=== PATIENT | male | born 1955 | race Two or more races ===

== ENCOUNTER 2021-01-24 14:44 | Outpatient (AMBR) | payer MEDICAID, SELFPAY ==
--- NOTE | 2020-12-28 09:26 | PTNOTE_ITS ---
PT OP Initial Eval Patient Information Visit Reasons: R29.898 Medical Diagnosis: R29.898 Treatment Dx #1: Decreased balance Start of Care: 12/28/20 Date of Onset: 09/10/20 Initial Assessment Subjective Pt is 65 yr old yi speaking male here with his s/p CVA in August. Pt is ambulating with FWW and says his L eye doesn't focus as well and his balance isn't as good as before. Pt's helps him with bathing and donning socks and pt is independent with other ADL's. He can reach up the L UE and feels like the strength is coming back in the L LE. He denies L foot drop. 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 Pt requires hand support with gait and doesn't see well out of L eye which affects depth perception. Pt scored high fall risk on the Tinetti test and chair to stand test and requires skilled therapy in order to improve balance with gait and has fair rehab potential. 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 Independent with HEP 2. Improved L LE strength quads and HS to at least 4/5 3. No sway with tandem stance on firm surfaces for 20 seconds 4. Improved chair to stand test to at least 10 5. Improved Tinetti score to at least 23/28 Treatment Plan 1. Manual therapy 2. Therex 3. Modalities as indicated, moist heat, ice, estim Frequency and Duration 2x a week for 6 weeks Certification Dates: 12/28/20 to 03/30/21 Office Procedures PT Procedures PT Date of Service: 12/28/20 OP PT Eval Mod Complex 30 minutes: Yes
--- NOTE | 2020-12-30 15:10 | PT.ODAYNRPT ---
PT Outpatient Daily Note Date of Service: 12/30/20 OP Daily Note Visit Reasons: R29.898 Outpatient Physical Therapy Treatment Date: 12/30/20 Subjective: Same as time of evaluation Objective: See F/S for therex Assessment: Pt has poor L eye vision which makes it difficult to grab walker on that side. He fatigued after lunging and partial body weight squatting therex today. Plan: Request additional authorized visits x11 Length of Time (minutes) of Treatment: 30 Minutes Office Procedures PT Procedures PT Date of Service: 12/28/20 OP PT Eval Mod Complex 30 minutes: Yes PT Procedures PT Date of Service: 12/30/20 Therapeutic Exercise 30 minutes: Yes
--- NOTE | 2021-01-24 19:33 | PT.ODAYNRPT ---
PT Outpatient Daily Note Date of Service: 01/24/21 OP Daily Note Visit Reasons: R29.898 Outpatient Physical Therapy Treatment Date: 01/24/21 Subjective: Pt feels his legs are stronger after last visit Objective: See F/S for therex Assessment: Pt has poor L eye vision which makes it difficult to grab walker on that side. He fatigued after lunging and partial body weight squatting therex today. Plan: Continue per POC Length of Time (minutes) of Treatment: 30 Minutes Office Procedures PT Procedures PT Date of Service: 12/28/20 OP PT Eval Mod Complex 30 minutes: Yes PT Procedures PT Date of Service: 12/30/20 Therapeutic Exercise 30 minutes: Yes PT Procedures PT Date of Service: 01/24/21 Therapeutic Exercise 30 minutes: Yes
== END 2021-01-25 23:59 | disposition home or self-care (01) ==
PROVIDERS: PCP Physician Assistant; Referring Provider Physician Assistant; Visit Provider Physician Assistant
DX: I69.354 Hemiplegia and hemiparesis following cerebral infarction affecting left non-dominant side (principal); R26.89 Other abnormalities of gait and mobility; I10 Essential (primary) hypertension; E11.9 Type 2 diabetes mellitus without complications
CPT/HCPCS: 97110; 97162

== ENCOUNTER → 2024-07-17 | Outpatient (CLI) | payer MEDICARE, MEDICAID, SELFPAY ==
--- NOTE | 2024-07-17 12:00 | XR_ITS ---
Examination: MRI brain without intravenous contrast. Date and time of exam: July 17, 2024 1307 hours INDICATIONS: Numbness and weakness in the legs this month, history CVA 2021 Technique: Multiple axial and sagittal images of the brain obtained. Siemens high-resolution 1.5 Yisel short bore scanners utilized. Sagittal sections, T1-weighted, TR 500, TE 14, are performed. Axial sections proton-density and T2-weighted have been obtained. Inversion recovery axial images, TR 9, 260, TE 111, TI 2500. Diffusion weighted images, axial sections, TR 4800, TE 128, B value 1000 Axial sections, ADC map, TR 4800, TE 128 Findings: Enlargement of the sella turcica is not present. The optic chiasm and infundibular are not remarkable. Prepontine and interpeduncular cisterns are not enlarged. There is no localized enlargement of the medulla or blanca. Fourth ventricle and cerebellar tonsils appear normal in position. No subacute area of hemorrhage density is seen. Mass in the cerebellopontine angle region is not evident. Globes symmetrical. Orbital musculature including medial lateral rectus muscles do not exhibit abnormality. Diffusion-weighted images demonstrate no focus of restricted diffusion. Increased white matter signal prominent, large old infarct right temporal right occipital right posterior parietal lobe Mass effect upon the ventricular system is not identified. Impression: Negative for acute hemorrhage mass effect or midline shift No acute infarct Large old infarcts as above
== END | disposition home or self-care (01) ==
LOC: SMRI 11:46
PROVIDERS: PCP Physician Assistant; Referring Provider Physician Assistant; Visit Provider Physician Assistant
DX: R41.3 Other amnesia (principal); Z86.73 Personal history of transient ischemic attack (TIA), and cerebral infarction without residual deficits
CPT/HCPCS: 70551

== ENCOUNTER → 2024-07-18 | Outpatient (CLI) | payer MEDICARE, MEDICAID, SELFPAY | END | disposition home or self-care (01) | PROVIDERS: Visit Provider Surgery | DX: S81.011A Laceration without foreign body, right knee, initial encounter (principal); S81.801A Unspecified open wound, right lower leg, initial encounter; X58.XXXA Exposure to other specified factors, initial encounter; E11.69 Type 2 diabetes mellitus with other specified complication; I10 Essential (primary) hypertension; I82.403 Acute embolism and thrombosis of unspecified deep veins of lower extremity, bilateral; R60.0 Localized edema; H54.7 Unspecified visual loss; N28.89 Other specified disorders of kidney and ureter | CPT/HCPCS: 11042; 99213; A9270; G0463 ==

== ENCOUNTER → 2024-07-25 | Outpatient (CLI) | payer MEDICARE, MEDICAID, SELFPAY | END | disposition home or self-care (01) | LOC: SWHD 14:32 | PROVIDERS: PCP Physician Assistant; Referring Provider Physician Assistant; Visit Provider Surgery | DX: I96 Gangrene, not elsewhere classified (principal); S81.011A Laceration without foreign body, right knee, initial encounter; S81.801A Unspecified open wound, right lower leg, initial encounter; X58.XXXA Exposure to other specified factors, initial encounter; E11.69 Type 2 diabetes mellitus with other specified complication; I10 Essential (primary) hypertension; I82.403 Acute embolism and thrombosis of unspecified deep veins of lower extremity, bilateral; R60.0 Localized edema; H54.7 Unspecified visual loss; N28.9 Disorder of kidney and ureter, unspecified | CPT/HCPCS: 29581; A9270 ==

== ENCOUNTER → 2024-08-01 | Outpatient (CLI) | payer MEDICARE, MEDICAID, SELFPAY | END | disposition home or self-care (01) | LOC: SWHD 14:07 | PROVIDERS: PCP Physician Assistant; Referring Provider Physician Assistant; Visit Provider Physician Assistant | DX: I96 Gangrene, not elsewhere classified (principal); S81.011A Laceration without foreign body, right knee, initial encounter; S81.801A Unspecified open wound, right lower leg, initial encounter; X58.XXXA Exposure to other specified factors, initial encounter; E11.69 Type 2 diabetes mellitus with other specified complication; I10 Essential (primary) hypertension; I82.403 Acute embolism and thrombosis of unspecified deep veins of lower extremity, bilateral; N28.9 Disorder of kidney and ureter, unspecified | CPT/HCPCS: 97597; A9270 ==

== ENCOUNTER → 2024-08-08 | Outpatient (CLI) | payer MEDICARE, MEDICAID, SELFPAY | END | disposition home or self-care (01) | LOC: SWHD 10:41 | PROVIDERS: PCP Physician Assistant; Referring Provider Physician Assistant; Visit Provider Student in an Organized Health Care Education/Training Program | DX: I96 Gangrene, not elsewhere classified (principal); S81.801A Unspecified open wound, right lower leg, initial encounter; S81.011A Laceration without foreign body, right knee, initial encounter; X58.XXXA Exposure to other specified factors, initial encounter; E11.69 Type 2 diabetes mellitus with other specified complication; I10 Essential (primary) hypertension; I82.403 Acute embolism and thrombosis of unspecified deep veins of lower extremity, bilateral; H54.7 Unspecified visual loss; N28.9 Disorder of kidney and ureter, unspecified | CPT/HCPCS: 97597; A9270 ==

== ENCOUNTER → 2024-08-14 | Outpatient (CLI) | payer MEDICARE, MEDICAID, SELFPAY ==
--- NOTE | 2024-08-14 15:49 | EKG_ITS ---
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
[2024-08-14 16:38] LABS: INR 1.3 (0.9-1.3); Prothrombin Time 13.5 Seconds (9.0-12.2)
[2024-08-14 16:41] LABS: Alanine Aminotransferase 15 U/L (10-49); Albumin, Serum 4.1 gm/dL (3.4-4.8); Albumin/Globulin Ratio 1.8 (1.2-2.2); Alkaline Phosphatase 110 U/L (46-116); Anion Gap 9 (7-16); Aspartate Amino Transferase 17 U/L (0-34); BUN/Creatinine Ratio 21 Ratio (12-20); Bilirubin,Total 0.9 mg/dL (0.3-1.2); Blood Urea Nitrogen 29 mg/dL (9-23); Calcium 9.6 mg/dL (8.3-10.6); Calcium (Corrected) 9.6 mg/dL (8.5-10.1); Carbon Dioxide 26.8 mMol/L (20.0-31.0); Chloride 107 mMol/L (98-107); Creatinine (Component) 1.4 mg/dL (0.6-1.3); Globulin 2.3 gm/dL (2.3-3.5); Glucose 132 mg/dL (74-106); Osmolality,Calculated 292 (275-295); Potassium 4.4 mMol/L (3.4-5.1); Sodium 143 mMol/L (136-145); Total Protein 6.4 gm/dL (5.7-8.2); eGFR 55 See Note
[2024-08-14 18:11] LABS: Basophils % (Auto) 0 % (0-2.5); Eosinophils % (Auto) 1 % (0-10); Hemoglobin 14.3 g/dL (13.5-16.0); Immature Granulocytes % (Auto) 0 % (0-0); Immature Granulocytes Auto 0.02 Thou/mm3 (0.00-0.00); Lymphocytes % (Auto) 17 % (10-50); Mean Corpuscular HGB Conc 32.5 g/dl (31.0-37.0); Mean Corpuscular Hemoglobin 32.4 pg (25.0-35.0); Mean Corpuscular Volume 100 fL (80-100); Monocytes # (Auto) 0.5 Thou/mm3 (0.0-0.8); Monocytes % (Auto) 8 % (0-12); Neutrophils # (Auto) 4.4 Thou/mm3 (1.8-7.7); Neutrophils % (Auto) 74 % (37-80); Nucleated Red Blood Cell % 0 /100 WBC (0); Platelet Count 126 Thou/mm3 (140-440); RDW Standard Deviation 51.4 fL (35.1-43.9); Red Blood Count 4.42 Miln/mm3 (4.50-5.90); White Blood Count 5.9 Thou/mm3 (3.8-10.6)
== END | disposition home or self-care (01) ==
LOC: COPL 15:10
PROVIDERS: PCP Physician Assistant; Referring Provider Surgery Vascular Surgery; Visit Provider Surgery Vascular Surgery
DX: Z01.818 Encounter for other preprocedural examination (principal); I70.213 Atherosclerosis of native arteries of extremities with intermittent claudication, bilateral legs
CPT/HCPCS: 36415; 80053; 85025; 85610; 85730; 93005

== ENCOUNTER → 2024-08-15 | Outpatient (CLI) | payer MEDICARE, MEDICAID, SELFPAY | END | disposition home or self-care (01) | LOC: SWHD 10:29 | PROVIDERS: PCP Physician Assistant; Referring Provider Physician Assistant; Visit Provider Surgery | DX: I96 Gangrene, not elsewhere classified (principal); S81.801A Unspecified open wound, right lower leg, initial encounter; S81.011A Laceration without foreign body, right knee, initial encounter; X58.XXXA Exposure to other specified factors, initial encounter; E11.69 Type 2 diabetes mellitus with other specified complication; I10 Essential (primary) hypertension; I82.403 Acute embolism and thrombosis of unspecified deep veins of lower extremity, bilateral; H54.7 Unspecified visual loss; N28.9 Disorder of kidney and ureter, unspecified | CPT/HCPCS: 99213; A9270; G0463 ==

== ENCOUNTER → 2024-08-22 | Outpatient (CLI) | payer MEDICARE, MEDICAID, SELFPAY | END | disposition home or self-care (01) | LOC: SWHD 13:05 | PROVIDERS: PCP Physician Assistant; Referring Provider Physician Assistant; Visit Provider Surgery | DX: I96 Gangrene, not elsewhere classified (principal); S81.801A Unspecified open wound, right lower leg, initial encounter; X58.XXXA Exposure to other specified factors, initial encounter; L97.812 Non-pressure chronic ulcer of other part of right lower leg with fat layer exposed; E11.69 Type 2 diabetes mellitus with other specified complication; I10 Essential (primary) hypertension; I82.403 Acute embolism and thrombosis of unspecified deep veins of lower extremity, bilateral; N28.9 Disorder of kidney and ureter, unspecified | CPT/HCPCS: 29581; A9270 ==

== ENCOUNTER → 2024-08-25 | Outpatient (CLI) | payer MEDICARE, MEDICAID, SELFPAY | END | disposition home or self-care (01) | LOC: SWHD 11:44 | PROVIDERS: PCP Physician Assistant; Referring Provider Physician Assistant; Visit Provider Student in an Organized Health Care Education/Training Program | DX: I96 Gangrene, not elsewhere classified (principal); S81.801A Unspecified open wound, right lower leg, initial encounter; S81.011A Laceration without foreign body, right knee, initial encounter; X58.XXXA Exposure to other specified factors, initial encounter; E11.69 Type 2 diabetes mellitus with other specified complication; I10 Essential (primary) hypertension; I82.403 Acute embolism and thrombosis of unspecified deep veins of lower extremity, bilateral; H54.7 Unspecified visual loss; N28.9 Disorder of kidney and ureter, unspecified | CPT/HCPCS: 29581 ==

== ENCOUNTER → 2024-08-29 | Outpatient (CLI) | payer MEDICARE, MEDICAID, SELFPAY | END | disposition home or self-care (01) | LOC: SWHD 13:33 | PROVIDERS: PCP Physician Assistant; Referring Provider Physician Assistant; Visit Provider Surgery | DX: I96 Gangrene, not elsewhere classified (principal); S81.801A Unspecified open wound, right lower leg, initial encounter; X58.XXXA Exposure to other specified factors, initial encounter; L97.812 Non-pressure chronic ulcer of other part of right lower leg with fat layer exposed; E11.69 Type 2 diabetes mellitus with other specified complication; I10 Essential (primary) hypertension; I82.403 Acute embolism and thrombosis of unspecified deep veins of lower extremity, bilateral; H54.7 Unspecified visual loss; N28.9 Disorder of kidney and ureter, unspecified | CPT/HCPCS: 29581 ==

== ENCOUNTER → 2024-09-05 | Outpatient (CLI) | payer MEDICARE, MEDICAID, SELFPAY | END | disposition home or self-care (01) | LOC: SWHD 13:55 | PROVIDERS: PCP Physician Assistant; Referring Provider Physician Assistant; Visit Provider Student in an Organized Health Care Education/Training Program | DX: I96 Gangrene, not elsewhere classified (principal); S81.801A Unspecified open wound, right lower leg, initial encounter; X58.XXXA Exposure to other specified factors, initial encounter; L97.811 Non-pressure chronic ulcer of other part of right lower leg limited to breakdown of skin; E11.69 Type 2 diabetes mellitus with other specified complication; I10 Essential (primary) hypertension; I82.403 Acute embolism and thrombosis of unspecified deep veins of lower extremity, bilateral; N28.9 Disorder of kidney and ureter, unspecified | CPT/HCPCS: 97597; A9270 ==

== ENCOUNTER → 2024-09-12 | Outpatient (CLI) | payer MEDICARE, MEDICAID, SELFPAY | END | disposition home or self-care (01) | LOC: SWHD 13:47 | PROVIDERS: PCP Physician Assistant; Referring Provider Physician Assistant; Visit Provider Physician Assistant | DX: I96 Gangrene, not elsewhere classified (principal); S81.801A Unspecified open wound, right lower leg, initial encounter; X58.XXXA Exposure to other specified factors, initial encounter; L97.811 Non-pressure chronic ulcer of other part of right lower leg limited to breakdown of skin; E11.69 Type 2 diabetes mellitus with other specified complication; I10 Essential (primary) hypertension; I82.403 Acute embolism and thrombosis of unspecified deep veins of lower extremity, bilateral; N28.9 Disorder of kidney and ureter, unspecified | CPT/HCPCS: 97597; A9270 ==

== ENCOUNTER → 2024-09-19 | Outpatient (CLI) | payer MEDICARE, MEDICAID, SELFPAY ==
[2024-09-19 11:53] LABS: Basophils % (Auto) 1 % (0-2.5); Eosinophils # (Auto) 0.1 Thou/mm3 (0.0-0.5); Eosinophils % (Auto) 1 % (0-10); Hematocrit 42.9 % (41.0-53.0); Hemoglobin 14.4 g/dL (13.5-16.0); Immature Granulocytes % (Auto) 1 % (0-0); Immature Granulocytes Auto 0.03 Thou/mm3 (0.00-0.00); Lymphocytes # (Auto) 1.1 Thou/mm3 (1.0-4.8); Lymphocytes % (Auto) 21 % (10-50); Mean Corpuscular HGB Conc 33.6 g/dl (31.0-37.0); Mean Corpuscular Hemoglobin 32.6 pg (25.0-35.0); Mean Corpuscular Volume 97 fL (80-100); Monocytes # (Auto) 0.5 Thou/mm3 (0.0-0.8); Monocytes % (Auto) 10 % (0-12); Neutrophils # (Auto) 3.7 Thou/mm3 (1.8-7.7); Neutrophils % (Auto) 67 % (37-80); Nucleated Red Blood Cell % 0 /100 WBC (0); Platelet Count 126 Thou/mm3 (140-440); RDW Standard Deviation 50.9 fL (35.1-43.9); Red Blood Count 4.42 Miln/mm3 (4.50-5.90); White Blood Count 5.5 Thou/mm3 (3.8-10.6)
[2024-09-19 12:08] LABS: Alanine Aminotransferase 10 U/L (10-49); Albumin, Serum 4.3 gm/dL (3.4-4.8); Albumin/Globulin Ratio 1.9 (1.2-2.2); Alkaline Phosphatase 76 U/L (46-116); Anion Gap 7 (7-16); Aspartate Amino Transferase 14 U/L (0-34); BUN/Creatinine Ratio 22 Ratio (12-20); Bilirubin,Total 1.1 mg/dL (0.3-1.2); Blood Urea Nitrogen 29 mg/dL (9-23); Calcium 9.4 mg/dL (8.3-10.6); Calcium (Corrected) 9.4 mg/dL (8.5-10.1); Carbon Dioxide 28.4 mMol/L (20.0-31.0); Chloride 108 mMol/L (98-107); Creatinine (Component) 1.3 mg/dL (0.6-1.3); Globulin 2.3 gm/dL (2.3-3.5); Glucose 99 mg/dL (74-106); Osmolality,Calculated 290 (275-295); Potassium 4.7 mMol/L (3.4-5.1); Sodium 143 mMol/L (136-145); Total Protein 6.6 gm/dL (5.7-8.2); eGFR 60 See Note
[2024-09-19 12:25] LABS: INR 1.4 (0.9-1.3); Partial Thromboplastin Time 31.2 Seconds (22.0-36.0); Prothrombin Time 14.5 Seconds (9.0-12.2)
== END | disposition home or self-care (01) ==
PROVIDERS: PCP Physician Assistant; Referring Provider Surgery Vascular Surgery; Visit Provider Surgery Vascular Surgery
DX: I73.9 Peripheral vascular disease, unspecified (principal); Z01.818 Encounter for other preprocedural examination; Z79.01 Long term (current) use of anticoagulants
CPT/HCPCS: 36415; 80053; 85025; 85610; 85730

== ENCOUNTER → 2024-09-19 | Outpatient (CLI) | payer MEDICARE, MEDICAID, SELFPAY | END | disposition home or self-care (01) | PROVIDERS: PCP Physician Assistant; Referring Provider Physician Assistant; Visit Provider Surgery | DX: I96 Gangrene, not elsewhere classified (principal); S81.801A Unspecified open wound, right lower leg, initial encounter; X58.XXXA Exposure to other specified factors, initial encounter; L97.811 Non-pressure chronic ulcer of other part of right lower leg limited to breakdown of skin; E11.69 Type 2 diabetes mellitus with other specified complication; I10 Essential (primary) hypertension; I82.403 Acute embolism and thrombosis of unspecified deep veins of lower extremity, bilateral; N28.9 Disorder of kidney and ureter, unspecified; R60.0 Localized edema | CPT/HCPCS: 99212; G0463 ==

== ENCOUNTER → 2024-10-10 | Outpatient (CLI) | payer MEDICARE, MEDICAID, SELFPAY | END | disposition home or self-care (01) | LOC: SWHD 10:55 | PROVIDERS: PCP Physician Assistant; Referring Provider Physician Assistant; Visit Provider Surgery | DX: I96 Gangrene, not elsewhere classified (principal); S81.801A Unspecified open wound, right lower leg, initial encounter; X58.XXXA Exposure to other specified factors, initial encounter; L97.811 Non-pressure chronic ulcer of other part of right lower leg limited to breakdown of skin; E11.69 Type 2 diabetes mellitus with other specified complication; I10 Essential (primary) hypertension; I82.403 Acute embolism and thrombosis of unspecified deep veins of lower extremity, bilateral; N28.9 Disorder of kidney and ureter, unspecified; R60.0 Localized edema | CPT/HCPCS: 99211; G0463 ==

== ENCOUNTER → 2024-10-22 | Outpatient (CLI) | payer MEDICARE, MEDICAID, SELFPAY ==
--- NOTE | 2024-10-22 09:45 | XR_ITS ---
Examination: Testicular sonography complete TECHNIQUE: Grayscale sonographic images testes, assessment arterial inflow venous outflow Doppler spectral analysis carful analysis Date and time: October 22, 2024 1003 hours Comparison October 19, 2023 INDICATIONS: Bilateral testicular swelling beginning one month ago FINDINGS: Right testis 3.3 cm epididymis 1.4 cm 3 mm right epididymal cyst Arterial flow to the testicle. No testicular mass Prominent lateral varicoceles Mild hydrocele Left testis 3.4 cm epididymis 1.9 cm Arterial flow testicle. No testicular mass Severe left hydrocele with increased echogenic appearance consider infected left scrotal sac Prominent varicocele IMPRESSION: No testicular torsion or testicular mass Prominent bilateral varicoceles Prominent left hydrocele, consider infected left hydrocele, clinical correlation advised
== END | disposition home or self-care (01) ==
LOC: CDIM 09:39
PROVIDERS: PCP Physician Assistant; Referring Provider Physician Assistant; Visit Provider Physician Assistant
DX: I86.1 Scrotal varices (principal); N43.3 Hydrocele, unspecified
CPT/HCPCS: 76870

== ENCOUNTER → 2025-05-04 | Outpatient (CLI) | payer MEDICARE, MEDICAID, SELFPAY ==
[2025-05-04 15:12] LABS: Basophils # (Auto) 0.0 Thou/mm3 (0.0-0.2); Basophils % (Auto) 0 % (0-2.5); Eosinophils # (Auto) 0.1 Thou/mm3 (0.0-0.5); Eosinophils % (Auto) 1 % (0-10); Hematocrit 43.1 % (41.0-53.0); Hemoglobin 14.1 g/dL (13.5-16.0); Immature Granulocytes Auto 0.07 Thou/mm3 (0.00-0.00); Lymphocytes # (Auto) 1.4 Thou/mm3 (1.0-4.8); Lymphocytes % (Auto) 19 % (10-50); Mean Corpuscular HGB Conc 32.7 g/dl (31.0-37.0); Mean Corpuscular Hemoglobin 32.4 pg (25.0-35.0); Mean Corpuscular Volume 99 fL (80-100); Monocytes # (Auto) 0.6 Thou/mm3 (0.0-0.8); Monocytes % (Auto) 8 % (0-12); Neutrophils # (Auto) 5.1 Thou/mm3 (1.8-7.7); Neutrophils % (Auto) 71 % (37-80); Nucleated Red Blood Cell # 0.00 Thou/mm3 (0.00-0.00); Nucleated Red Blood Cell % 0 /100 WBC (0); Platelet Count 116 Thou/mm3 (140-440); RDW Standard Deviation 52.5 fL (35.1-43.9); Red Blood Count 4.35 Miln/mm3 (4.50-5.90); White Blood Count 7.2 Thou/mm3 (3.8-10.6)
[2025-05-04 15:25] LABS: Alanine Aminotransferase 19 U/L (10-49); Albumin, Serum 4.3 gm/dL (3.4-4.8); Alkaline Phosphatase 96 U/L (46-116); Anion Gap 9 (7-16); Aspartate Amino Transferase 15 U/L (0-34); BUN/Creatinine Ratio 25 Ratio (12-20); Bilirubin,Direct 0.3 mg/dL (0.0-0.3); Bilirubin,Total 1.0 mg/dL (0.3-1.2); Blood Urea Nitrogen 32 mg/dL (9-23); Calcium 9.6 mg/dL (8.3-10.6); Carbon Dioxide 28.6 mMol/L (20.0-31.0); Cardiac Risk Estimate 2.1 RATIO (4.0-6.7); Chloride 108 mMol/L (98-107); Cholesterol 142 mg/dL (132-200); Creatinine (Component) 1.3 mg/dL (0.6-1.3); Digoxin 1.0 ng/mL (0.8-2.0); Glucose 75 mg/dL (74-106); HDL Cholesterol 69 mg/dL (40-60); LDL Cholesterol,Calculated 63 mg/dL (0-130); Osmolality,Calculated 296 (275-295); Phosphorous 3.1 mg/dL (2.4-5.1); Potassium 4.5 mMol/L (3.4-5.1); Sodium 146 mMol/L (136-145); Total Protein 7.0 gm/dL (5.7-8.2); Triglycerides 52 mg/dL (30-150); eGFR 59 See Note
[2025-05-04 15:28] LABS: B-Type Natriuretic Peptide 122 pg/mL (0-100)
[2025-05-13 06:21] LABS: Direct LDL* 61 mg/dL (<100)
== END | disposition home or self-care (01) ==
LOC: COPL 13:54
PROVIDERS: PCP Physician Assistant; Referring Provider Internal Medicine Cardiovascular Disease; Visit Provider Internal Medicine Cardiovascular Disease
DX: E78.5 Hyperlipidemia, unspecified (principal); I11.0 Hypertensive heart disease with heart failure; I50.9 Heart failure, unspecified; R06.02 Shortness of breath
CPT/HCPCS: 36415; 80048; 80061; 80076; 80162; 83721; 83880; 84100; 85025